=== PATIENT | female | born 1965 | race Two or more races ===

== ENCOUNTER 2018-05-23 09:06 | Day surgery (SDC) | payer MEDICAID ==
[2018-05-09 15:48] LABS: BASOPHILS % (AUTO) 0.6 % (0.0-2.0); EOSINOPHILS % (AUTO) 3.4 % (0.0-3.0); HEMATOCRIT 41.8 % (37.0-47.0); HEMOGLOBIN 14.3 G/DL (12.0-16.0); LYMPHOCYTES % (AUTO) 36.6 % (20.0-45.0); MEAN CORPUSCULAR VOLUME 91 FL (80-99); MONOCYTES % (AUTO) 9.3 % (1.0-10.0); NEUTROPHILS % (AUTO) 50.1 % (45.0-75.0); PLATELET COUNT 307 K/UL (150-450); RED BLOOD COUNT 4.61 M/UL (4.20-5.40); RED CELL DISTRIBUTION WIDTH 12.8 % (11.6-14.8); WHITE BLOOD COUNT 5.7 K/UL (4.8-10.8)
[2018-05-09 15:50] LABS: APPEARANCE,URINE CLEAR; BILIRUBIN, URINE NEGATIVE (NEGATIVE); COLOR,URINE PALE YELLOW; GLUCOSE, URINE (UA) NEGATIVE (NEGATIVE); KETONES,URINE NEGATIVE (NEGATIVE); LEUKOCYTE ESTERASE ,URINE 1+ (NEGATIVE); NITRITE,URINE NEGATIVE (NEGATIVE); PH,URINE 7 (4.5-8.0); PROTEIN,URINE NEGATIVE (NEGATIVE); UROBILINOGEN,URINE NORMAL MG/DL (0.0-1.0)
[2018-05-09 15:54] LABS: ANION GAP 9 mmol/L (5-15); BLOOD UREA NITROGEN 10 mg/dL (7-18); CALCIUM 9.1 MG/DL (8.5-10.1); CARBON DIOXIDE 28 MMOL/L (21-32); CHLORIDE 107 MMOL/L (98-107); CREATININE 0.9 MG/DL (0.55-1.30); POTASSIUM 3.3 MMOL/L (3.5-5.1); SODIUM 144 MMOL/L (136-145)
--- NOTE | 2018-05-10 18:37 | Cardiology Report ---
APPROVED REPORT EKG Measurement Heart [id number] Normal sinus rhythm Normal ECG
--- NOTE | 2018-05-17 17:15 | Pre-op HX & Phy Repo 2 SIG ---
DATE OF ADMISSION: 05/19/2018 Scheduled for outpatient surgery on 05/19/2018. HISTORY OF PRESENT ILLNESS: The patient is a 53-year-old female in overall good health with ductal carcinoma in situ of the right breast. The patient recently presented for breast cancer screening and was found to have a grouping of calcifications in the upper outer quadrant of the right breast at the 12 o'clock position and core biopsy revealed ductal carcinoma in situ. The calcification was noted to be in the anterior breast central, slightly outer. She is scheduled to undergo right breast excisional biopsy with preoperative needle localization. PAST MEDICAL HISTORY/MEDICATIONS: None. ALLERGIES: Aspirin causes emesis and tremors. She is also allergic to caffeine. OPERATIONS: Tubal ligation. REVIEW OF SYSTEMS: 3, para 3. Last menstrual period in 2013. She had pneumonia in March 2018. PHYSICAL EXAMINATION: GENERAL: The patient is 5 feet 5 inches and 160 pounds. VITAL SIGNS: Normal. HEENT: Within normal limits. LUNGS: Clear. HEART: Regular rhythm. BREASTS: Reveal no masses on either side. No axillary or supraclavicular lymphadenopathy. ABDOMEN: Soft. PELVIC AND RECTAL: Per primary care. EXTREMITIES: Without edema. NEUROLOGIC: Physiologic. IMPRESSION: Ductal carcinoma in situ, right breast. PLAN: Excision with preoperative needle localization. A full discussion has been held with the patient regarding the nature of her condition, the nature of the surgery, indications, alternatives, options, and risks including bleeding, infection, need for additional surgery based on final pathology, scarring, deformity of the shape or appearance of the breast etc. All questions have been answered. She understands and agrees to proceed as an outpatient under general anesthesia. Mehran Bowles M.D. DR: ADILENE JOB#: [id number] CC:
--- NOTE | 2018-05-18 13:30 | NUR ---
ADMITTED VIA JIMY MUJICA #[id number].
[~2018-05-23] VITALS: Ht 162.6 cm; Wt 72.6 kg
[2018-05-23] VITALS (12 sets, daily range): BP systolic 109–121; BP diastolic 60–73
[~2018-05-23 09:06] MED LIST: NKM
[2018-05-23] MEDS ORDERED: Lidocaine 1% 10mg/ml/Epi 0.005mg/ml 30ml vial INJ ONE (09:19)
[2018-05-23] MEDS ORDERED: Bupivacaine w/Epi 0.5% 30ml Vial INJ ONE (09:19)
[2018-05-23] MEDS ORDERED: Bacitracin 50000 Units Vial ONE (09:19)
[2018-05-23] MEDS ORDERED: Midazolam 2mg/2ml Inj ONE (09:50)
[2018-05-23] MEDS ORDERED: Propofol 200mg/20ml IV ONE (09:50)
[2018-05-23] MEDS ORDERED: fentaNYL 100 mcg/2 mL IV ONE (09:50)
--- NOTE | 2018-05-23 10:07 | Anethesia Preoperative Eval ---
Anesthesia Pre-op PMH/ROS General Date of Evaluation: May 23, 2018 Time of Evaluation: 10:03 Anesthesiologist: Nirav ASA Score: ASA 2 Mallampati Score Class I : Soft palate, uvula, fauces, pillars visible Class II: Soft palate, uvula, fauces visible Class III: Soft palate, base of uvula visible Class IV: Only hard plate visible Mallampati Classification: Class II Surgeon: Jelena Diagnosis: R breast CA Surgical Procedure: R breast partial mastectomy Anesthesia History: none Family History: no anesthesia problems Allergies: Coded Allergies: ASPIRIN (Verified Allergy, Severe, 05/18/18) tachycardia and vomiting CAFFEINE (Verified Allergy, Severe, 05/18/18) TACHYCARDIA, TREMBLING AND STRONG STOMACH PAIN Medications: see eMAR Patient NPO?: Yes NPO Date: May 22, 2018 NPO Time: 1900 Past Medical History Cardiovascular: Denies: HTN, CAD, DC, valve dz, arrhythmia, other Pulmonary: Denies: asthma, COPD, JOEY, other Gastrointestinal/Genitourinary: Reports: GERD - mild; Denies: CRI, ESRD, other Neurologic/Psychiatric: Denies: dementia, CVA, depression/anxiety, TIA, other Endocrine: Denies: DM, hypothyroidism, steroids, other HEENT: Denies: cataract (L), cataract (R), glaucoma, ELIM IRA (L), ELIM IRA (R), other Hematology/Immune: Denies: anemia, DVT, bleeding disorder, other Musculoskeletal/Integumentary: Denies: OA, RA, DJD, DDD, edema, other PMH Narrative: as above PSxH Narrative: Tubal ligation Anesthesia Pre-op Phys. Exam Physician Exam Last Vital Signs Date Time Temp Pulse Resp B/P (MAP) Pulse Ox O2 Delivery O2 Flow Rate FiO2 05/23/18 09:49 Room Air 05/23/18 09:44 97.8 86 18 118/71 (87) 98 Constitutional: NAD Neurologic: CN 2-12 intact Cardiovascular: RRR, no M/R/G Respiratory: CTA Gastrointestinal: S/NT/ND Airway Exam Mallampati Score: Class II MO: full Neck: flexible ROM: full Teeth: intact Dentures: no upper, no lower Anesthesia Pre-op A/P Labs see chart Studies Pre-op Studies: EKG - NSR Risk Assessment & Plan Assessment: ASA 2 Plan: GA with LMA PONV prevention Status Change Before Surgery: No Pre-Antibiotics Drug: Ancef 1gr. Given Within 1 Hr of Incision: Yes Time Given: 10:48 Randal Gastelum MD May 23, 2018 10:07
--- NOTE | 2018-05-23 10:16 | Pre-Procedure Note/Attestation ---
Pre-Procedure Note/Attestation Complete Prior to Procedure Planned Procedure: right Procedure Narrative: right breast biopsy with pre-op needle localization Indications for Procedure Pre-Operative Diagnosis: ductal carcinoma in situ right breast Attestation I attest that I discussed the nature of the procedure; its benefits; risks and complications; and alternatives (and the risks and benefits of such alternatives ), prior to the procedure, with the patient (or the patient's legal goodwill representative). I attest that, if there was a reasonable possibility of needing a blood transfusion, the patient (or the patient's legal goodwill representative) was given the [facility] standardized written summary, pursuant to the Jeremiah Brendan Blood Safety Act ([place] Health and Safety Code # 1645, as amended). I attest that I re-evaluated the patient just prior to the surgery and that there has been no change in the patient's H&P, except as documented below:none Mehran Bowles MD May 23, 2018 10:16
[2018-05-23] MEDS ORDERED: LR 1000ml ONE (10:30)
[2018-05-23] MEDS ORDERED: Sterile Water Irrig 1000ml IRRIG ONE (10:30)
[2018-05-23] MEDS ORDERED: Ketorolac 30mg Inj ONE (10:30)
[2018-05-23] MEDS ORDERED: NS Irrig 1000ml IRRIG ONE (10:40)
[2018-05-23] MEDS ORDERED: LR 1000ml 1,000 ML IVLG SCH (11:12)
[2018-05-23] MEDS ORDERED: Hydromorphone 0.5mg/0.5ml inj IVP PRN (11:15)
[2018-05-23] MEDS ORDERED: DiphenhydrAMINE 50mg/ml Inj IVP PRN (11:15)
[2018-05-23] MEDS ORDERED: Ketorolac 30mg Inj IV PRN (11:15)
[2018-05-23] MEDS ORDERED: Metoclopramide 10mg/2ml Inj IVP PRN (11:15)
--- NOTE | 2018-05-23 12:01 | Brief Operative Note ---
Immediate Post Operative Note Operative Note Pre-op Diagnosis: ductal carcinoma in situ right breast Procedure: right breast biopsy with pre-op needle localization Post-op Diagnosis: same Post-op Diagnosis: same as pre-op Findings: consistent w/pre-op dx studies Surgeon: dorothea Anesthesiologist: nicolette Anesthesia: general Specimen: yes - right breast lesion Complications: none Condition: stable Fluids: see anesthesia record Estimated Blood Loss: minimal Drains: none Implant(s) used?: No Mehran Bowles MD May 23, 2018 12:01
--- NOTE | 2018-05-23 12:09 | Immediate Post-Op Evaluation ---
Immediate Post-Op Evalulation Immediate Post-Op Evalulation Procedure: R breast excisional Bx Date of Evaluation: May 23, 2018 Time of Evaluation: 12:08 IV Fluids: 700 Blood Products: none Estimated Blood Loss: min Urinary Output: none Blood Pressure Systolic: 107 Blood Pressure Diastolic: 64 Pulse Rate: 86 Respiratory Rate: 20 O2 Sat by Pulse Oximetry: 99 Temperature (Fahrenheit): 97.8 Pain Score (1-10): 1 Nausea: No Vomiting: No Complications none Patient Status: awake, patent, none Hydration Status: adequate Randal Gastelum MD May 23, 2018 12:09
[2018-05-23] MEDS ORDERED: Tylenol #3 tab (300mg/30mg) ORAL PRN (12:15)
[2018-05-23] MEDS ORDERED: HYDROcodone/Acetamin 5/325 tab ORAL PRN (12:15)
[2018-05-23] MEDS ORDERED: HYDROmorphone 1mg/ml Carpuject SUBQ PRN (12:15)
[2018-05-23] MEDS ORDERED: D5 1/2NS 1,000 ML IV SCH (12:15)
--- NOTE | 2018-05-23 12:58 | 48 Hour Post Anesthesia Eval ---
Post Anesthesia Evaluation Procedure: R breast excisional Bx Date of Evaluation: May 23, 2018 Time of Evaluation: 12:57 Blood Pressure Systolic: 116 0: 72 Pulse Rate: 72 Respiratory Rate: 20 Temperature (Fahrenheit): 97.8 O2 Sat by Pulse Oximetry: 97 Airway: patent Nausea: No Vomiting: No Pain Intensity: 1 Hydration Status: adequate Cardiopulmonary Status: stable Mental Status/LOC: patient returned to baseline Follow-up Care/Observations: n/a Post-Anesthesia Complications: none Follow-up care needed: ready to discharge Randal Gastelum MD May 23, 2018 12:58
--- NOTE | 2018-05-23 15:00 | Operative Note - Dictated ---
DATE OF OPERATION: 05/23/2018 SURGEON: Mehran Bowles M.D. COUNTERINTELLIGENCE/HUMINT SPECIALIST: None. ANESTHESIOLOGIST: Randal Gastelum M.D. TYPE OF ANESTHESIA: General endotracheal. PREOPERATIVE DIAGNOSIS: Ductal carcinoma in situ, right breast. POSTOPERATIVE DIAGNOSIS: Ductal carcinoma in situ, right breast. OPERATION PERFORMED: Right breast biopsy with preoperative needle localization. DESCRIPTION OF PROCEDURE: The patient was taken to the operating room and under general anesthesia with sequential compression device stockings in place, she was prepped and draped in usual fashion. The lesion was located at 2 cm from the nipple and slightly lateral between the 10 to 12 o'clock position. A circumareolar incision was made and the flaps dissected superolaterally. The wire was brought into the field. The appropriate sector of tissue was removed including the wire and sent for specimen radiograph. The biopsy clip was not visualized. Additional tissue was removed and another specimen radiograph performed. Again, the clip was not visualized. The radiologist stated it might have fallen off, but that sufficient tissue had been removed to encompass the lesion. The field was irrigated and hemostasis secured with cautery. The incision was closed with interrupted 3-0 Vicryl subcutaneous sutures and continuous 4-0 Monocryl subcuticular suture. Tincture of benzoin half-inch Steri-Strips were applied followed by dry sterile dressing. Final sponge and needle counts were correct. The patient tolerated the procedure well and left the operating room in good condition. Mehran Bowles M.D. DR: ADILENE JOB#: [id number] CC:
== END 2018-05-23 15:45 | disposition home or self-care (01) ==
LOC: SUR 09:06
DX: D05.91 Unspecified type of carcinoma in situ of right breast (principal); K21.9 Gastro-esophageal reflux disease without esophagitis; Z88.6 Allergy status to analgesic agent; Z91.048 Other nonmedicinal substance allergy status; Z98.51 Tubal ligation status
CPT/HCPCS: 19125; 36415; 80048; 81001; 85025; 87081; 93005; J0690; J1170; J1885; J2250; J2405; J2704; J3010; Z7512; 94003; 94150